=== PATIENT | male | born 1995 | race Two or more races ===

== ENCOUNTER 2025-05-16 21:25 | Emergency (ER) | payer OTHER ==
[~2025-05-16] VITALS: Ht 172.7 cm; Wt 122.0 kg
[2025-05-16] MEDS: SODIUM CHLORIDE 0.9% 1,000 ML IV ONE (21:56)
[2025-05-16] MEDS: ONDANSETRON HCL 4 MG/2 ML VIAL IVP ONE (21:56)
[2025-05-16] MEDS: MORPHINE SULFATE 4 MG/ML SYRINGE IVP ONE (21:56)
[2025-05-17] VITALS: BP 146/85; PULSE 85; RESP 16; TEMP 98.6; O2SAT 96
== END 2025-05-17 00:47 | disposition home or self-care (01) ==
LOC: EMS 21:25
DX: T20.20XA Burn of second degree of head, face, and neck, unspecified site, initial encounter (principal); Y92.89 Other specified places as the place of occurrence of the external cause
CPT/HCPCS: 99285; 96374; 96361; 96375; J2270; J2405; J7030